=== PATIENT | male | born 1940 | race Caucasian/White ===

== ENCOUNTER 2016-06-11 18:05 | Inpatient (IN) | payer MEDICARE, BC ==
[~2016-06-11] VITALS: Ht 177.8 cm; Wt 96.2 kg
[~2016-06-11 18:05] MED LIST: AMARYL 2MG T2 MG/TAB PO; AMOXICILLIN/CLA1 TA1 PO; ANTIVERT 12.512.5 MG PO; ASPIRIN 32325 MG/TAB PO; ASPIRIN 81M81 MG/TA2 PO; ASPIRIN E.C. 8181 MG PO; BIOTIN5 MG PO; CALCIUM 600600 MG; CALCIUM600 M1 PO; CARDIZEM CD 18180 MG PO; CARDIZEM CD180 MG PO; CENTRUM SILVER1 TA2 PO; CLARITIN 1010 MG/TAB PO; COLACE 100100 MG/CAP PO; COMPLETE SENIOR1 TA1 PO; DEMADEX 20MG20 M1 PO; DEMADEX 20MG20 MG PO; EFFIENT10 MG PO; ELIQUIS 5MG PO; FERROUS SU325 MG/TAB PO; FLOMAX 0.40.4 MG/CAP PO; FOLIC ACID PO; GAVISCON; LACTAID; LACTAID ULTRA9000 U PO; LORATADINE10 MG PO; MACRODANTIN100; MAGNESIUM OXID500 MG PO; MAGNESIUM OXIDE PO; MASON NATURAL1200 MG PO; MERIBIN5 MG; MEVACOR10 MG PO; MONODOX100 PO; NEXIUM 40MG40 MG PO; NEXIUM40 MG PO; NITROSTAT0.4 MG/TAB SL; NORCO 325 MG-51 TAB PO; OMEGA-3 FISH1200 MG PO; PERCOCET 325 MG1 TA2 PO; PHOS LO PO; PRINIVIL10 MG PO; PROSCAR 5MG5 MG PO; PROSCAR PO; TAMBOCOR150 MG PO; TIAZAC180 MG PO; TOPROL XL 25MG25 MG PO; TYLENOL 500MG500 MG PO; VITAMIN C250250 MG PO; VITAMIN D1000 IU PO; VITAMINC1000TA; ZINC SO4 PO
[2016-06-11] MEDS ORDERED: TRIMPEX100 MG PO (18:17)
[2016-06-11] MEDS ORDERED: ZANTAC 7575 MG PO (18:18)
[2016-06-11 19:19] LABS: BASO # 0.1 (0.0-0.2); BASO % 1.2 % (0.0-2.0); EOS # 0.2 (0.0-0.7); EOS % 3.1 % (0-4.0); GRAN # 5.5 (1.4-6.5); HEMATOCRIT 43.6 % (42.0-52.0); HEMOGLOBIN 14.5 g/dl (13.5-18.0); LYMPH # 0.9 (1.2-3.4); LYMPH % 12.6 % (20.0-51.0); MEAN CELL VOLUME 88 fl (80.0-100.0); MEAN CORPUSCULAR HEMOGLOBIN 29 pg (27.0-31.0); MEAN CORPUSCULAR HGB CONC 33 g/dl (33.0-37.0); MEAN PLATELET VOLUME 12.2 fl (7.4-10.4); MONO # 0.6 (0.1-0.6); MONO % 7.8 % (1.7-9.3); PLATELET COUNT 165 K/mm3 (130-400); RED BLOOD COUNT 4.96 M/mm3 (4.20-5.60); REDCELL DISTRIBUTION WIDTH-CV 13.5 % (11.5-14.5); WHITE BLOOD COUNT 7.3 K/mm3 (4.8-10.8)
[2016-06-11 19:28] LABS: PH 6 (5-8); SQUAMOUS EPITHELIAL 0-2 /hpf; URINE APPEARANCE Clear; URINE BACTERIA Rare /hpf; URINE BILIRUBIN Negative (NEGATIVE); URINE BLOOD Negative (NEGATIVE); URINE COLOR Yellow; URINE GLUCOSE Negative (NEGATIVE); URINE KETONE Negative (NEGATIVE); URINE RBC 0-2 /hpf; URINE UROBILINOGEN Negative (NEGATIVE)
[2016-06-11 19:36] LABS: ADJUSTED CALCIUM 8.8 mg/dL (8.4-10.2); ALBUMIN 4.2 gm/dL (3.5-5.0); BILIRUBIN,TOTAL 0.7 mg/dL (0.0-1.0); CREATININE, serum 1.1 mg/dL (0.66-1.25); POTASSIUM 4.7 mmol/L (3.4-5.0); TOTAL PROTEIN 7.8 gm/dL (6.4-8.2)
[2016-06-11 19:36] LABS: INFLUENZA B NEGATIVE
[2016-06-11 20:58] VITALS: BP 154/67; PULSE 69; TEMP 99.1
[2016-06-12] VITALS (7 sets, daily range): BP systolic 117–143; BP diastolic 49–94; PULSE 61–91; TEMP 97.8–101.3
[2016-06-13] VITALS (7 sets, daily range): BP systolic 123–153; BP diastolic 57–68; PULSE 69–91; TEMP 98.2–101.8
[2016-06-13 11:10] LABS: BASO % 0.9 % (0.0-2.0); EOS # 0.2 (0.0-0.7); EOS % 3.6 % (0-4.0); GRAN # 3.1 (1.4-6.5); GRAN % 65.7 % (42.2-75.2); HEMATOCRIT 38.4 % (42.0-52.0); HEMOGLOBIN 12.8 g/dl (13.5-18.0); LYMPH # 0.9 (1.2-3.4); MEAN CELL VOLUME 88 fl (80.0-100.0); MEAN CORPUSCULAR HEMOGLOBIN 29 pg (27.0-31.0); MEAN CORPUSCULAR HGB CONC 33 g/dl (33.0-37.0); MEAN PLATELET VOLUME 11.7 fl (7.4-10.4); MONO # 0.5 (0.1-0.6); MONO % 9.6 % (1.7-9.3); PLATELET COUNT 145 K/mm3 (130-400); RED BLOOD COUNT 4.37 M/mm3 (4.20-5.60); REDCELL DISTRIBUTION WIDTH-CV 13.5 % (11.5-14.5); WHITE BLOOD COUNT 4.7 K/mm3 (4.8-10.8)
[2016-06-14] VITALS (7 sets, daily range): BP systolic 99–133; BP diastolic 49–63; PULSE 62–80; TEMP 97.6–99.8
[2016-06-14 11:25] LABS: HEMATOCRIT 38.8 % (42.0-52.0); HEMOGLOBIN 12.8 g/dl (13.5-18.0); MEAN CELL VOLUME 89 fl (80.0-100.0); MEAN CORPUSCULAR HEMOGLOBIN 30 pg (27.0-31.0); MEAN CORPUSCULAR HGB CONC 33 g/dl (33.0-37.0); MEAN PLATELET VOLUME 11.6 fl (7.4-10.4); PLATELET COUNT 137 K/mm3 (130-400); RED BLOOD COUNT 4.34 M/mm3 (4.20-5.60); REDCELL DISTRIBUTION WIDTH-CV 13.5 % (11.5-14.5); WHITE BLOOD COUNT 4.7 K/mm3 (4.8-10.8)
[2016-06-14 11:29] LABS: ADJUSTED CALCIUM 9.1 mg/dL (8.4-10.2); ALBUMIN 3.4 gm/dL (3.5-5.0); BILIRUBIN,TOTAL 0.5 mg/dL (0.0-1.0); CALCIUM 8.6 mg/dL (8.4-10.2); CREATININE, serum 0.97 mg/dL (0.66-1.25); POTASSIUM 3.9 mmol/L (3.4-5.0); TOTAL PROTEIN 6.2 gm/dL (6.4-8.2)
[2016-06-14 11:36] LABS: ADD PATHOLOGY DIFF REVIEW NO
[2016-06-14 11:46] LABS: BAND 11 % (0-10); EOSINOPHIL 6 % (0-4); NEUTROPHILS 63 % (42.0-75.2); PLATELET ESTIMATE NORMAL (NORMAL); TOTAL CELLS COUNTED 100
[2016-06-15 03:52] VITALS: BP 111/63; PULSE 65; TEMP 98.3
[2016-06-15 08:01] VITALS: BP 118/81; PULSE 72; TEMP 98.1
[2016-06-15 11:32] VITALS: BP 128/64; PULSE 67; TEMP 98.1
[2016-06-15 15:47] VITALS: BP 128/72; PULSE 71; TEMP 97.8
[2016-06-15 20:27] VITALS: BP 130/65; PULSE 65; TEMP 98.4
[2016-06-16 00:26] VITALS: BP 105/53; PULSE 73; TEMP 98.5
[2016-06-16 05:17] VITALS: BP 114/59; PULSE 77; TEMP 98.6
[2016-06-16 08:02] VITALS: BP 119/60; PULSE 72; TEMP 98.1
[2016-06-16 11:30] VITALS: BP 131/84; PULSE 64; TEMP 98.1
[2016-06-16 14:10] VITALS: BP 148/80; PULSE 66
[2016-06-16] MEDS ORDERED: CEFTIN500 MG PO (14:45)
== END 2016-06-16 16:44 | disposition home or self-care (01) | DRG 699 ==
LOC: COL.ER 18:05 → MEDICAL 19:58
PROVIDERS: Emergency Medicine; Nurse Practitioner Family
DX: T83.511A Infection and inflammatory reaction due to indwelling urethral catheter, initial encounter (principal); N13.8 Other obstructive and reflux uropathy; N39.0 Urinary tract infection, site not specified; I25.10 Atherosclerotic heart disease of native coronary artery without angina pectoris; Z95.5 Presence of coronary angioplasty implant and graft; I10 Essential (primary) hypertension; L27.0 Generalized skin eruption due to drugs and medicaments taken internally; T50.8X5A Adverse effect of diagnostic agents, initial encounter; N40.1 Benign prostatic hyperplasia with lower urinary tract symptoms; E11.9 Type 2 diabetes mellitus without complications; I48.91 Unspecified atrial fibrillation; Z87.891 Personal history of nicotine dependence
CPT/HCPCS: 99222-AI; 99232-AI; 99239; G9654; J0696; J1200; J1815; J2060; J2405; J2704; J7030; Q9967

== ENCOUNTER 2016-07-18 08:17 | Inpatient (IN) | payer MEDICARE, BC ==
[~2016-07-18] VITALS: Ht 177.8 cm; Wt 96.1 kg
[~2016-07-18 08:17] MED LIST changes: +CEFTIN500 MG PO; +TRIMPEX100 MG PO; +ZANTAC 7575 MG PO
[2016-07-18 09:30] VITALS: BP 126/75; PULSE 76; TEMP 98.3
[2016-07-18] MEDS ORDERED: TRIMPEX100 MG PO (10:16)
[2016-07-18 10:20] LABS: HEMATOCRIT 43.5 % (42.0-52.0); HEMOGLOBIN 14.4 g/dl (13.5-18.0); MEAN CELL VOLUME 88 fl (80.0-100.0); MEAN CORPUSCULAR HEMOGLOBIN 29 pg (27.0-31.0); MEAN CORPUSCULAR HGB CONC 33 g/dl (33.0-37.0); MEAN PLATELET VOLUME 11.8 fl (7.4-10.4); PLATELET COUNT 187 K/mm3 (130-400); RED BLOOD COUNT 4.94 M/mm3 (4.20-5.60); REDCELL DISTRIBUTION WIDTH-CV 13.7 % (11.5-14.5); WHITE BLOOD COUNT 6.8 K/mm3 (4.8-10.8)
[2016-07-18] MEDS ORDERED: COLACE 100100 MG/CAP PO (10:21)
[2016-07-18 10:24] LABS: INR 1.3 (0.8-3.0); PROTHROMBIN TIME 14.9 SECONDS (9.7-12.8)
[2016-07-18] MEDS ORDERED: CALCIUM 600/VIT1 CAP PO (10:26)
[2016-07-18 10:39] LABS: ADJUSTED CALCIUM 9.7 mg/dL (8.4-10.2); BILIRUBIN,TOTAL 0.6 mg/dL (0.0-1.0); CALCIUM 9.7 mg/dL (8.4-10.2); CREATININE, serum 1.07 mg/dL (0.66-1.25); MAGNESIUM 2.1 mg/dL (1.6-2.3); TOTAL PROTEIN 7.4 gm/dL (6.4-8.2)
[2016-07-18] MEDS ORDERED: EX-LAX25 MG PO (10:45)
[2016-07-18 11:51] VITALS: BP 115/66; PULSE 74; TEMP 98.2
[2016-07-18 16:22] VITALS: BP 123/59; PULSE 63; TEMP 97.8
[2016-07-18 20:37] VITALS: BP 123/65; PULSE 61; TEMP 98.4
[2016-07-18 23:43] VITALS: BP 109/63; PULSE 60; TEMP 98.8
[2016-07-19 03:14] VITALS: BP 95/58; PULSE 66; TEMP 98.4
[2016-07-19 07:25] LABS: HEMATOCRIT 43.1 % (42.0-52.0); HEMOGLOBIN 14.2 g/dl (13.5-18.0); MEAN CELL VOLUME 89 fl (80.0-100.0); MEAN CORPUSCULAR HEMOGLOBIN 29 pg (27.0-31.0); MEAN CORPUSCULAR HGB CONC 33 g/dl (33.0-37.0); PLATELET COUNT 186 K/mm3 (130-400); RED BLOOD COUNT 4.86 M/mm3 (4.20-5.60); REDCELL DISTRIBUTION WIDTH-CV 13.7 % (11.5-14.5); WHITE BLOOD COUNT 5.9 K/mm3 (4.8-10.8)
[2016-07-19 07:43] LABS: CALCIUM 9.2 mg/dL (8.4-10.2); POTASSIUM 3.9 mmol/L (3.4-5.0)
[2016-07-19 07:54] VITALS: BP 127/62; PULSE 60; TEMP 98.2
[2016-07-19 11:38] VITALS: BP 146/73; PULSE 57; TEMP 97.9
[2016-07-19 16:40] VITALS: BP 135/71; PULSE 55; TEMP 98.6
[2016-07-19 19:27] VITALS: BP 131/67; PULSE 63; TEMP 98
[2016-07-19 23:32] VITALS: BP 111/57; PULSE 57; TEMP 97.7
[2016-07-20 03:35] VITALS: BP 92/70; PULSE 62; TEMP 97.8
[2016-07-20 07:20] LABS: HEMATOCRIT 39.2 % (42.0-52.0); HEMOGLOBIN 13.2 g/dl (13.5-18.0); MEAN CELL VOLUME 88 fl (80.0-100.0); MEAN CORPUSCULAR HEMOGLOBIN 30 pg (27.0-31.0); MEAN CORPUSCULAR HGB CONC 34 g/dl (33.0-37.0); MEAN PLATELET VOLUME 12.1 fl (7.4-10.4); PLATELET COUNT 168 K/mm3 (130-400); RED BLOOD COUNT 4.46 M/mm3 (4.20-5.60); REDCELL DISTRIBUTION WIDTH-CV 13.3 % (11.5-14.5); WHITE BLOOD COUNT 5.6 K/mm3 (4.8-10.8)
[2016-07-20 07:34] VITALS: BP 121/72; PULSE 59; TEMP 98.2
[2016-07-20 07:36] LABS: CALCIUM 8.9 mg/dL (8.4-10.2); CREATININE, serum 1.02 mg/dL (0.66-1.25); POTASSIUM 3.9 mmol/L (3.4-5.0)
[2016-07-20] MEDS ORDERED: BETAPACE 120MG120 MG PO (10:52)
== END 2016-07-20 11:40 | disposition home or self-care (01) | DRG 310 ==
LOC: MEDICAL 08:17
PROVIDERS: Internal Medicine Cardiovascular Disease
DX: I48.0 Paroxysmal atrial fibrillation (principal); E11.9 Type 2 diabetes mellitus without complications; I10 Essential (primary) hypertension; Z87.891 Personal history of nicotine dependence

== ENCOUNTER → 2016-12-12 | Outpatient (CLI) | payer MEDICARE, BC ==
[~2016-12-12] MED LIST changes: +BETAPACE 120MG120 MG PO; +CALCIUM 600/VIT1 CAP PO; +EX-LAX25 MG PO
== END ==
LOC: COL.RAD 09:33
DX: N31.2 Flaccid neuropathic bladder, not elsewhere classified (principal)

== ENCOUNTER 2017-06-29 16:49 | Observation (INO) | payer MEDICARE, BC ==
[2017-06-29] VITALS (109 sets, daily range): BP systolic 138; BP diastolic 66–99; PULSE 62–69; TEMP 97.2; O2SAT 94–97
[~2017-06-29] VITALS: Ht 177.8 cm; Wt 90.0 kg
[2017-06-29] MEDS ORDERED: PROTONIX 40MG T40 MG PO (17:09)
[2017-06-29] MEDS ORDERED: DOXYCYCLINE 50M50 MG PO (17:10)
[2017-06-29] MEDS ORDERED: BETAPACE 120MG120 MG PO (17:11)
[2017-06-29 17:16] LABS: BASO # 0.1 (0.0-0.2); BASO % 1.5 % (0.0-2.0); EOS # 0.4 (0.0-0.7); EOS % 6.3 % (0-4.0); GRAN # 2.7 (1.4-6.5); GRAN % 46.3 % (42.2-75.2); HEMATOCRIT 42.1 % (42.0-52.0); HEMOGLOBIN 13.8 g/dl (13.5-18.0); LYMPH # 1.9 (1.2-3.4); LYMPH % 32.4 % (20.0-51.0); MEAN CELL VOLUME 89 fl (80.0-100.0); MEAN CORPUSCULAR HEMOGLOBIN 29 pg (27.0-31.0); MEAN CORPUSCULAR HGB CONC 33 g/dl (33.0-37.0); MEAN PLATELET VOLUME 11.9 fl (7.4-10.4); MONO # 0.8 (0.1-0.6); MONO % 13.2 % (1.7-9.3); PLATELET COUNT 193 K/mm3 (130-400); RED BLOOD COUNT 4.74 M/mm3 (4.20-5.60); REDCELL DISTRIBUTION WIDTH-CV 13.2 % (11.5-14.5)
[2017-06-29 17:18] LABS: INR 1.2 (0.8-3.0); PROTHROMBIN TIME 14.1 SECONDS (9.7-12.8)
[2017-06-29 17:20] LABS: PARTIAL THROMBOPLASTIN TIME 34.8 SECONDS (26.0-37.0)
[2017-06-29 17:21] LABS: ALANINE AMINOTRANSFERASE 54 U/L (21-72); ALBUMIN 4.2 gm/dL (3.5-5.0); ALKALINE PHOSPHATASE 61 U/L (50-136); ANION GAP 11 mmol/L (7-16); AST,SGOT 43 U/L (15-37); BILIRUBIN,TOTAL 0.4 mg/dL (0.0-1.0); BLOOD UREA NITROGEN 14 mg/dL (9-20); CALCIUM 9.2 mg/dL (8.4-10.2); CARBON DIOXIDE 25 mmol/L (22-30); CHLORIDE 101 mmol/L (98-107); CREATININE, serum 0.84 mg/dL (0.66-1.25); GLUCOSE 204 mg/dL (74-106); MAGNESIUM 1.9 mg/dL (1.6-2.3); POTASSIUM 4.1 mmol/L (3.4-5.0); SODIUM 137 mmol/L (137-145); TOTAL PROTEIN 7.5 gm/dL (6.4-8.2)
[2017-06-29 17:36] LABS: TROPONIN-I < 0.012 ng/mL (0.000-0.034)
[2017-06-29 19:49] LABS: MAGNESIUM 1.9 mg/dL (1.6-2.3)
[2017-06-29 20:02] LABS: TROPONIN-I 3 HR POST INITIAL < 0.012 ng/mL (0.000-0.034)
[2017-06-29] MEDS ORDERED: MAG-OX 400400 MG/TAB PO (21:13)
[2017-06-29 21:27] LABS: COLLECTION METHOD CATHETER
[2017-06-29 21:39] LABS: PH 6 (5-8); SQUAMOUS EPITHELIAL 0-2 /hpf; URINE APPEARANCE Clear; URINE BACTERIA None Seen /hpf; URINE BILIRUBIN Negative (NEGATIVE); URINE BLOOD Negative (NEGATIVE); URINE COLOR Straw; URINE GLUCOSE Negative (NEGATIVE); URINE KETONE Negative (NEGATIVE); URINE LEUKOCYTE ESTERASE 1+ (NEGATIVE); URINE NITRATE Negative (NEGATIVE); URINE PROTEIN(semi-quant) Negative (NEGATIVE); URINE RBC 0-2 /hpf; URINE UROBILINOGEN Negative (NEGATIVE)
[2017-06-30] VITALS (268 sets, daily range): BP systolic 118–141; BP diastolic 48–75; PULSE 50–62; TEMP 97.2–98.6; O2SAT 88–98
[2017-06-30 05:41] LABS: BASO # 0.1 (0.0-0.2); BASO % 1.4 % (0.0-2.0); EOS # 0.4 (0.0-0.7); EOS % 6.6 % (0-4.0); GRAN # 3.1 (1.4-6.5); GRAN % 52.8 % (42.2-75.2); LYMPH # 1.7 (1.2-3.4); LYMPH % 28.6 % (20.0-51.0); MEAN CELL VOLUME 89 fl (80.0-100.0); MEAN CORPUSCULAR HGB CONC 33 g/dl (33.0-37.0); MEAN PLATELET VOLUME 11.6 fl (7.4-10.4); MONO # 0.6 (0.1-0.6); MONO % 10.3 % (1.7-9.3); PLATELET COUNT 169 K/mm3 (130-400); RED BLOOD COUNT 4.05 M/mm3 (4.20-5.60); REDCELL DISTRIBUTION WIDTH-CV 13.1 % (11.5-14.5)
[2017-06-30 05:51] LABS: HEMATOCRIT 36.1 % (42.0-52.0); HEMOGLOBIN 11.8 g/dl (13.5-18.0); MEAN CORPUSCULAR HEMOGLOBIN 29 pg (27.0-31.0)
[2017-06-30 05:55] LABS: ALANINE AMINOTRANSFERASE 42 U/L (21-72); ALBUMIN 3.2 gm/dL (3.5-5.0); ALKALINE PHOSPHATASE 49 U/L (50-136); ANION GAP 6 mmol/L (7-16); AST,SGOT 27 U/L (15-37); BILIRUBIN,TOTAL 0.3 mg/dL (0.0-1.0); BLOOD UREA NITROGEN 12 mg/dL (9-20); CALCIUM 8.3 mg/dL (8.4-10.2); CARBON DIOXIDE 28 mmol/L (22-30); CHLORIDE 106 mmol/L (98-107); CHOLESTEROL 142 mg/dL (120-200); CHOLESTEROL RISK RATIO 6.1; CREATININE, serum 0.75 mg/dL (0.66-1.25); GLUCOSE 119 mg/dL (74-106); HDL CHOLESTEROL 23 mg/dL; LDL CHOLESTEROL 71 mg/dL; POTASSIUM 3.6 mmol/L (3.4-5.0); SODIUM 140 mmol/L (137-145); TOTAL PROTEIN 6.1 gm/dL (6.4-8.2); TRIGLYCERIDE 240 mg/dL
[2017-06-30 06:10] LABS: TROPONIN-I < 0.012 ng/mL (0.000-0.034)
== END 2017-06-30 13:15 | disposition home or self-care (01) ==
LOC: COL.ER 16:49 → ICU 18:15
PROVIDERS: Emergency Medicine; Nurse Practitioner Family
DX: R07.9 Chest pain, unspecified (principal); I48.0 Paroxysmal atrial fibrillation; E11.9 Type 2 diabetes mellitus without complications; I25.10 Atherosclerotic heart disease of native coronary artery without angina pectoris; I10 Essential (primary) hypertension; E78.5 Hyperlipidemia, unspecified; N41.9 Inflammatory disease of prostate, unspecified; K21.9 Gastro-esophageal reflux disease without esophagitis; I08.1 Rheumatic disorders of both mitral and tricuspid valves; Z88.1 Allergy status to other antibiotic agents; Z88.5 Allergy status to narcotic agent; Z90.49 Acquired absence of other specified parts of digestive tract; Z79.82 Long term (current) use of aspirin; Z79.01 Long term (current) use of anticoagulants; Z79.84 Long term (current) use of oral hypoglycemic drugs; Z87.891 Personal history of nicotine dependence; Z83.3 Family history of diabetes mellitus; Z82.3 Family history of stroke; Z82.5 Family history of asthma and other chronic lower respiratory diseases
CPT/HCPCS: G0378; J1815; J7030

== ENCOUNTER 2017-10-31 00:54 | Emergency (ER) | payer MEDICARE, BC ==
[~2017-10-31] VITALS: Ht 177.8 cm; Wt 90.9 kg
[~2017-10-31 00:54] MED LIST changes: +DOXYCYCLINE 50M50 MG PO; +MAG-OX 400400 MG/TAB PO; +PROTONIX 40MG T40 MG PO
[2017-10-31 01:02] VITALS: TEMP 97.8
[2017-10-31 01:12] LABS: BASO # 0.1 (0.0-0.2); BASO % 1.7 % (0.0-2.0); EOS # 0.5 (0.0-0.7); EOS % 6.4 % (0-4.0); GRAN # 4.1 (1.4-6.5); GRAN % 54.2 % (42.2-75.2); HEMATOCRIT 38.3 % (42.0-52.0); HEMOGLOBIN 13.1 g/dl (13.5-18.0); LYMPH # 2.1 (1.2-3.4); LYMPH % 27.9 % (20.0-51.0); MEAN CELL VOLUME 87 fl (80.0-100.0); MEAN CORPUSCULAR HEMOGLOBIN 30 pg (27.0-31.0); MEAN CORPUSCULAR HGB CONC 34 g/dl (33.0-37.0); MEAN PLATELET VOLUME 11.7 fl (7.4-10.4); MONO # 0.7 (0.1-0.6); MONO % 9.5 % (1.7-9.3); PLATELET COUNT 197 K/mm3 (130-400); RED BLOOD COUNT 4.43 M/mm3 (4.20-5.60); REDCELL DISTRIBUTION WIDTH-CV 13.6 % (11.5-14.5)
[2017-10-31 01:22] LABS: INR 1.1 (0.8-3.0)
[2017-10-31 01:24] LABS: ALANINE AMINOTRANSFERASE 34 U/L (21-72); ALBUMIN 3.6 gm/dL (3.5-5.0); ALKALINE PHOSPHATASE 52 U/L (50-136); ANION GAP 11 mmol/L (7-16); AST,SGOT 26 U/L (15-37); BILIRUBIN,TOTAL 0.3 mg/dL (0.0-1.0); BLOOD UREA NITROGEN 19 mg/dL (9-20); CALCIUM 8.9 mg/dL (8.4-10.2); CARBON DIOXIDE 24 mmol/L (22-30); CHLORIDE 103 mmol/L (98-107); CREATININE, serum 0.96 mg/dL (0.66-1.25); GLUCOSE 154 mg/dL (74-106); POTASSIUM 4.2 mmol/L (3.4-5.0); SODIUM 138 mmol/L (137-145); TOTAL PROTEIN 6.8 gm/dL (6.4-8.2)
[2017-10-31 01:35] LABS: TROPONIN-I < 0.012 ng/mL (0.000-0.034)
[2017-10-31] MEDS ORDERED: NITROSTAT0.4 MG/TAB SL (03:58)
[2017-10-31 04:12] VITALS: BP 115/62; PULSE 57
== END 2017-10-31 04:24 | disposition home or self-care (01) ==
LOC: COL.ER 00:54
PROVIDERS: Emergency Medicine
DX: R07.89 Other chest pain (principal); I25.119 Atherosclerotic heart disease of native coronary artery with unspecified angina pectoris; I10 Essential (primary) hypertension; E11.9 Type 2 diabetes mellitus without complications; E78.5 Hyperlipidemia, unspecified; K21.9 Gastro-esophageal reflux disease without esophagitis; I48.91 Unspecified atrial fibrillation; Z95.5 Presence of coronary angioplasty implant and graft; Z90.49 Acquired absence of other specified parts of digestive tract; Z79.82 Long term (current) use of aspirin

== ENCOUNTER 2018-04-24 18:01 | Inpatient (IN) | payer MEDICARE, BC ==
[~2018-04-24] VITALS: Ht 177.8 cm; Wt 86.1 kg
[2018-04-24 18:23] LABS: BASO # 0.2 (0.0-0.2); BASO % 1.6 % (0.0-2.0); EOS # 0.3 (0.0-0.7); EOS % 3.3 % (0-4.0); GRAN # 5.6 (1.4-6.5); GRAN % 61.2 % (42.2-75.2); HEMATOCRIT 39.7 % (42.0-52.0); HEMOGLOBIN 13.3 g/dl (13.5-18.0); LYMPH # 2.3 (1.2-3.4); LYMPH % 24.7 % (20.0-51.0); MEAN CELL VOLUME 89 fl (80.0-100.0); MEAN CORPUSCULAR HEMOGLOBIN 30 pg (27.0-31.0); MEAN CORPUSCULAR HGB CONC 34 g/dl (33.0-37.0); MEAN PLATELET VOLUME 12.1 fl (7.4-10.4); MONO # 0.8 (0.1-0.6); MONO % 8.9 % (1.7-9.3); PLATELET COUNT 230 K/mm3 (130-400); RED BLOOD COUNT 4.46 M/mm3 (4.20-5.60); REDCELL DISTRIBUTION WIDTH-CV 13.1 % (11.5-14.5)
[2018-04-24] MEDS ORDERED: GLUCOPHAGE XR500 M1 PO (18:40)
[2018-04-24] MEDS ORDERED: MEVACOR 20M20 MG/TAB PO (18:44)
[2018-04-24 18:45] LABS: ALANINE AMINOTRANSFERASE 39 U/L (21-72); ALKALINE PHOSPHATASE 57 U/L (50-136); ANION GAP 6 mmol/L (7-16); AST,SGOT 38 U/L (15-37); BILIRUBIN,TOTAL 0.1 mg/dL (0.0-1.0); BLOOD UREA NITROGEN 24 mg/dL (9-20); CALCIUM 9.1 mg/dL (8.4-10.2); CARBON DIOXIDE 26 mmol/L (22-30); CHLORIDE 108 mmol/L (98-107); GLUCOSE 139 mg/dL (74-106); LIPASE 95 U/L (23-300); POTASSIUM 4.5 mmol/L (3.4-5.0); SODIUM 141 mmol/L (137-145)
[2018-04-24 19:07] LABS: TROPONIN-I < 0.012 ng/mL (0.000-0.034)
[2018-04-24] MEDS ORDERED: TYLENOL 325MG325 MG PO (19:38)
[2018-04-24] MEDS ORDERED: BIOTIN2500 MCG PO (19:44)
[2018-04-24 21:25] VITALS: BP 110/63; PULSE 66; TEMP 98.1
[2018-04-24 22:30] VITALS: BP 124/65; PULSE 122
[2018-04-24 23:00] VITALS: BP 129/60; PULSE 66
[2018-04-24 23:54] VITALS: BP 101/64; PULSE 67; TEMP 97.9
[2018-04-25] VITALS (12 sets, daily range): BP systolic 114–136; BP diastolic 45–70; PULSE 57–79; TEMP 78.2–98.2
[2018-04-25 02:17] LABS: INR 1.4 (0.8-3.0); PROTHROMBIN TIME 15.5 SECONDS (9.7-12.8)
[2018-04-25 02:19] LABS: MAGNESIUM 2.1 mg/dL (1.6-2.3)
[2018-04-25 02:19] LABS: PARTIAL THROMBOPLASTIN TIME 37.6 SECONDS (26.0-37.0)
[2018-04-25 02:33] LABS: TROPONIN-I 6 HR POST INITIAL < 0.012 ng/mL (0.000-0.034)
[2018-04-25 07:44] LABS: CHOLESTEROL 138 mg/dL (120-200); CHOLESTEROL RISK RATIO 6.2; HDL CHOLESTEROL 22 mg/dL; LDL CHOLESTEROL 76 mg/dL; TRIGLYCERIDE 202 mg/dL
[2018-04-25 07:57] LABS: TROPONIN-I < 0.012 ng/mL (0.000-0.034)
[2018-04-25 14:24] LABS: COLLECTION METHOD CATHETER
[2018-04-25 14:31] LABS: PH 6 (5-8); SQUAMOUS EPITHELIAL None Seen /hpf; URINE APPEARANCE Clear; URINE BACTERIA None Seen /hpf; URINE BILIRUBIN Negative (NEGATIVE); URINE BLOOD Negative (NEGATIVE); URINE COLOR Yellow; URINE GLUCOSE Negative (NEGATIVE); URINE KETONE Negative (NEGATIVE); URINE LEUKOCYTE ESTERASE Negative (NEGATIVE); URINE NITRATE Negative (NEGATIVE); URINE PROTEIN(semi-quant) Negative (NEGATIVE); URINE RBC 0-2 /hpf; URINE UROBILINOGEN Negative (NEGATIVE)
[2018-04-26] VITALS (7 sets, daily range): BP systolic 107–143; BP diastolic 52–70; PULSE 57–98; TEMP 97.5–98.1
[2018-04-26 08:19] LABS: BASO # 0.1 (0.0-0.2); BASO % 1.2 % (0.0-2.0); EOS # 0.3 (0.0-0.7); GRAN # 5.1 (1.4-6.5); GRAN % 66.2 % (42.2-75.2); HEMATOCRIT 39.7 % (42.0-52.0); HEMOGLOBIN 13.2 g/dl (13.5-18.0); LYMPH # 1.5 (1.2-3.4); LYMPH % 19.7 % (20.0-51.0); MEAN CELL VOLUME 90 fl (80.0-100.0); MEAN CORPUSCULAR HEMOGLOBIN 30 pg (27.0-31.0); MEAN CORPUSCULAR HGB CONC 33 g/dl (33.0-37.0); MEAN PLATELET VOLUME 12.5 fl (7.4-10.4); MONO # 0.7 (0.1-0.6); MONO % 8.6 % (1.7-9.3); PLATELET COUNT 211 K/mm3 (130-400); RED BLOOD COUNT 4.43 M/mm3 (4.20-5.60); REDCELL DISTRIBUTION WIDTH-CV 13.1 % (11.5-14.5)
[2018-04-26 08:30] LABS: ALANINE AMINOTRANSFERASE 33 U/L (21-72); ALBUMIN 3.9 gm/dL (3.5-5.0); ALKALINE PHOSPHATASE 52 U/L (50-136); ANION GAP 7 mmol/L (7-16); AST,SGOT 35 U/L (15-37); BILIRUBIN,TOTAL 0.4 mg/dL (0.0-1.0); BLOOD UREA NITROGEN 19 mg/dL (9-20); CALCIUM 9.1 mg/dL (8.4-10.2); CARBON DIOXIDE 27 mmol/L (22-30); CHLORIDE 108 mmol/L (98-107); CREATININE, serum 0.78 mg/dL (0.66-1.25); GLUCOSE 159 mg/dL (74-106); SODIUM 142 mmol/L (137-145); TOTAL PROTEIN 6.9 gm/dL (6.4-8.2)
[2018-04-26 08:56] LABS: TROPONIN-I < 0.012 ng/mL (0.000-0.034)
[2018-04-27] VITALS (20 sets, daily range): BP systolic 96–144; BP diastolic 53–97; PULSE 52–69; TEMP 97.4–98
[2018-04-27 07:54] LABS: BASO # 0.1 (0.0-0.2); BASO % 1.6 % (0.0-2.0); EOS # 0.4 (0.0-0.7); GRAN # 4.2 (1.4-6.5); GRAN % 60.3 % (42.2-75.2); HEMATOCRIT 37.5 % (42.0-52.0); HEMOGLOBIN 12.5 g/dl (13.5-18.0); LYMPH # 1.6 (1.2-3.4); LYMPH % 22.5 % (20.0-51.0); MEAN CELL VOLUME 88 fl (80.0-100.0); MEAN CORPUSCULAR HEMOGLOBIN 29 pg (27.0-31.0); MEAN CORPUSCULAR HGB CONC 33 g/dl (33.0-37.0); MONO # 0.7 (0.1-0.6); MONO % 10.2 % (1.7-9.3); PLATELET COUNT 186 K/mm3 (130-400); RED BLOOD COUNT 4.25 M/mm3 (4.20-5.60)
[2018-04-27 08:00] LABS: INR 1.2 (0.8-3.0); PROTHROMBIN TIME 13.1 SECONDS (9.7-12.8)
[2018-04-27 08:02] LABS: PARTIAL THROMBOPLASTIN TIME 35.1 SECONDS (26.0-37.0)
[2018-04-27 08:09] LABS: CALCIUM 8.8 mg/dL (8.4-10.2); CREATININE, serum 0.75 mg/dL (0.66-1.25); POTASSIUM 3.9 mmol/L (3.4-5.0)
[2018-04-28 04:15] VITALS: BP 119/58; PULSE 62
[2018-04-28 08:13] VITALS: BP 118/63; PULSE 61; TEMP 97.9
[2018-04-28 12:08] VITALS: BP 118/63; PULSE 56; TEMP 97.4
[2018-04-28] MEDS ORDERED: BETAPACE 120MG120 MG PO (12:58)
== END 2018-04-28 14:10 | disposition home or self-care (01) | DRG 287 ==
LOC: COL.ER 18:01 → MEDICAL 20:25
PROVIDERS: Emergency Medicine; Internal Medicine; Nurse Practitioner Family; Physician Assistant
PROC: B2111ZZ Fluoroscopy of Multiple Coronary Arteries using Low Osmolar Contrast (ICD-10-PCS; principal; 2018-04-27)
DX: I25.10 Atherosclerotic heart disease of native coronary artery without angina pectoris (principal); N13.8 Other obstructive and reflux uropathy; I48.0 Paroxysmal atrial fibrillation; Z95.5 Presence of coronary angioplasty implant and graft; I10 Essential (primary) hypertension; E11.9 Type 2 diabetes mellitus without complications; N40.1 Benign prostatic hyperplasia with lower urinary tract symptoms; K22.2 Esophageal obstruction; Z79.01 Long term (current) use of anticoagulants; E78.5 Hyperlipidemia, unspecified; I08.1 Rheumatic disorders of both mitral and tricuspid valves; Z87.891 Personal history of nicotine dependence; I27.20 Pulmonary hypertension, unspecified
CPT/HCPCS: 99232-AI; 99233-AI; 99239; A9502; C1760; C1894; G0378; J1200; J1644; J1815; J2250; J2785; J2930; J3010; J7030; Q9967

== ENCOUNTER → 2018-07-30 | Outpatient (CLI) | payer MEDICARE, BC ==
[~2018-07-30] MED LIST changes: +BIOTIN2500 MCG PO; +GLUCOPHAGE XR500 M1 PO; +MEVACOR 20M20 MG/TAB PO; +TYLENOL 325MG325 MG PO
== END ==
LOC: COL.RAD 12:27
DX: N31.2 Flaccid neuropathic bladder, not elsewhere classified (principal)

== ENCOUNTER 2020-01-03 08:08 | Day surgery (SDC) | payer MEDICARE, BC ==
[~2020-01-03] VITALS: Ht 177.8 cm; Wt 89.7 kg
[~2020-01-03 08:08] MED LIST changes: +CALCIUM CARBON600 M1 PO; +GLUCOPHAGE500 MG/TAB PO; +LIPITOR20 MG PO; +MACROBID 1100 MG/CAP PO; +MASON NATURAL O1 SGL PO; -MASON NATURAL1200 MG PO; +MULTIVITAMIN SEN PO; +OMNICEF 300MG300 MG PO; -VITAMINC1000TA; +VITAMINC1000TA PO
[2020-01-03 08:46] VITALS: BP 143/71; PULSE 63; TEMP 98.6
[2020-01-03] MEDS ORDERED: BETAPACE160 MG PO (08:54)
[2020-01-03] MEDS ORDERED: ELIQUIS 5MG PO (08:55)
[2020-01-03] MEDS ORDERED: BETAPACE 80MG80 MG PO (08:57)
[2020-01-03] MEDS ORDERED: PROSCAR 5MG5 MG PO (08:59)
[2020-01-03] MEDS ORDERED: LIPITOR20 MG PO (09:00)
[2020-01-03] MEDS ORDERED: VITAMIN D31000 I1 PO (09:06)
[2020-01-03] MEDS ORDERED: CEPHALEXIN500 M1 PO (09:07)
[2020-01-03 09:15] VITALS: BP 128/62; PULSE 60; TEMP 97.8
--- NOTE | 2020-01-03 09:15 | NUR ---
Patient brought back to [facility] via cart. Ambulated to chair with one assist. Placed on monitors, vital signs stable. Patient is oriented, denies nausea or pain. Requests diet soda, peanut butter, and crackers. at bedside to drive patient home. Warm blanket provied, call bravo within reach. Will continue to monitor.
[2020-01-03 09:30] VITALS: BP 131/61; PULSE 61
--- NOTE | 2020-01-03 09:30 | NUR ---
Patient tolerating food and drink without difficulty. Denies any trouble swallowing. Will continue to monitor.
[2020-01-03 09:45] VITALS: BP 134/69; PULSE 60
--- NOTE | 2020-01-03 09:45 | NUR ---
Patient states he feels ready to go home at this time. IV removed, intact. Denies pain or nasuea. Patient to get dressed at this time. in room to assist. Will continue to monitor.
--- NOTE | 2020-01-03 09:55 | NUR ---
Discharge instructions reviewed with patient and . Verbalized understanding. Patient brought down to lobby via wheel chair. Helped into vehicle. to drive patient home. All belongings in hand.
== END 2020-01-03 09:55 | disposition home or self-care (01) ==
LOC: SDCO 08:08
DX: K22.2 Esophageal obstruction (principal); K21.9 Gastro-esophageal reflux disease without esophagitis; E11.9 Type 2 diabetes mellitus without complications; I10 Essential (primary) hypertension; E78.00 Pure hypercholesterolemia, unspecified; I25.10 Atherosclerotic heart disease of native coronary artery without angina pectoris; Z95.5 Presence of coronary angioplasty implant and graft; I48.91 Unspecified atrial fibrillation; G89.29 Other chronic pain; Z91.041 Radiographic dye allergy status; Z88.1 Allergy status to other antibiotic agents; Z88.5 Allergy status to narcotic agent; Z88.2 Allergy status to sulfonamides; Z79.01 Long term (current) use of anticoagulants; Z79.82 Long term (current) use of aspirin; Z79.84 Long term (current) use of oral hypoglycemic drugs
CPT/HCPCS: C1726; J2704; J3010; J7030

== ENCOUNTER 2020-02-11 12:16 | Emergency (ER) | payer MEDICARE, BC ==
[~2020-02-11] VITALS: Ht 177.8 cm; Wt 87.3 kg
[~2020-02-11 12:16] MED LIST changes: +BETAPACE 80MG80 MG PO; +BETAPACE160 MG PO; +CEPHALEXIN500 M1 PO; +VITAMIN D31000 I1 PO
[2020-02-11 14:00] LABS: BASO # 0.1 (0.0-0.2); BASO % 0.9 % (0.0-2.0); EOS # 0.3 (0.0-0.7); EOS % 2.8 % (0-4.0); GRAN # 9.1 (1.4-6.5); GRAN % 76.2 % (42.2-75.2); HEMATOCRIT 37.3 % (42.0-52.0); HEMOGLOBIN 12.3 g/dl (13.5-18.0); LYMPH # 1.2 (1.2-3.4); LYMPH % 9.6 % (20.0-51.0); MEAN CELL VOLUME 90 fl (80.0-100.0); MEAN CORPUSCULAR HEMOGLOBIN 30 pg (27.0-31.0); MEAN CORPUSCULAR HGB CONC 33 g/dl (33.0-37.0); MONO # 1.2 (0.1-0.6); MONO % 10.1 % (1.7-9.3); PLATELET COUNT 201 K/mm3 (130-400); RED BLOOD COUNT 4.14 M/mm3 (4.20-5.60); REDCELL DISTRIBUTION WIDTH-CV 13.4 % (11.5-14.5)
[2020-02-11 14:02] LABS: INR 1.3 (0.8-3.0); PROTHROMBIN TIME 15.1 SECONDS (9.7-12.8)
[2020-02-11 14:04] LABS: PARTIAL THROMBOPLASTIN TIME 38.7 SECONDS (26.0-37.0)
[2020-02-11 14:06] LABS: CREATININE, serum 0.92 (0.66-1.25); POTASSIUM 4.6 mmol/L (3.4-5.0)
[2020-02-11 15:02] LABS: C-REACTIVE PROTEIN 1.4 mg/dL (0.0-0.9); URIC ACID 7.4 mg/dL (3.5-8.5)
[2020-02-11] MEDS ORDERED: NORCO 325 MG-51 TAB PO (15:29)
[2020-02-11 15:30] VITALS: BP 167/80; PULSE 67; TEMP 98.1
== END 2020-02-11 15:53 | disposition home or self-care (01) ==
LOC: COL.ER 12:16
PROVIDERS: Emergency Medicine
DX: M25.512 Pain in left shoulder (principal); Z79.01 Long term (current) use of anticoagulants; Z88.2 Allergy status to sulfonamides; Z88.6 Allergy status to analgesic agent; Z79.82 Long term (current) use of aspirin; Z79.84 Long term (current) use of oral hypoglycemic drugs; W01.0XXA Fall on same level from slipping, tripping and stumbling without subsequent striking against object, initial encounter; Y92.009 Unspecified place in unspecified non-institutional (private) residence as the place of occurrence of the external cause
CPT/HCPCS: J3010

== ENCOUNTER 2020-11-15 17:04 | Emergency (ER) | payer MEDICARE, BC ==
[~2020-11-15] VITALS: Ht 177.8 cm; Wt 86.4 kg
[2020-11-15 17:12] VITALS: TEMP 98.2
[2020-11-15 17:34] LABS: BASO # 0.2 (0.0-0.2); EOS # 0.9 (0.0-0.7); EOS % 9.8 % (0-4.0); GRAN % 56.3 % (42.2-75.2); HEMATOCRIT 41.6 % (42.0-52.0); HEMOGLOBIN 13.5 g/dl (13.5-18.0); LYMPH # 2.1 (1.2-3.4); LYMPH % 22.9 % (20.0-51.0); MEAN CELL VOLUME 88 fl (80.0-100.0); MEAN CORPUSCULAR HEMOGLOBIN 29 pg (27.0-31.0); MEAN CORPUSCULAR HGB CONC 33 g/dl (33.0-37.0); MEAN PLATELET VOLUME 12.1 fl (7.4-10.4); MONO # 0.8 (0.1-0.6); MONO % 8.7 % (1.7-9.3); PLATELET COUNT 220 K/mm3 (130-400); RED BLOOD COUNT 4.73 M/mm3 (4.20-5.60); REDCELL DISTRIBUTION WIDTH-CV 13.9 % (11.5-14.5)
[2020-11-15 17:41] LABS: ALANINE AMINOTRANSFERASE 22 U/L (4-49); ALBUMIN 4.1 gm/dL (3.5-5.0); ALKALINE PHOSPHATASE 62 U/L (50-136); ANION GAP 10 mmol/L (7-16); AST,SGOT 30 U/L (15-37); BILIRUBIN,TOTAL 0.2 mg/dL (0.0-1.0); BLOOD UREA NITROGEN 23 mg/dL (9-20); CALCIUM 9.5 mg/dL (8.4-10.2); CARBON DIOXIDE 22 mmol/L (22-30); CHLORIDE 106 mmol/L (98-107); CREATININE, serum 1.14 (0.66-1.25); GLUCOSE 200 mg/dL (74-106); INR 1.2 (0.8-3.0); POTASSIUM 4.2 mmol/L (3.4-5.0); PROTHROMBIN TIME 12.9 SECONDS (9.7-12.8); SODIUM 138 mmol/L (137-145); TOTAL PROTEIN 7.4 gm/dL (6.4-8.2)
[2020-11-15 17:43] LABS: PARTIAL THROMBOPLASTIN TIME 35.2 SECONDS (26.0-37.0)
[2020-11-15 18:02] LABS: TROPONIN-I < 0.012 ng/mL (0.000-0.035)
[2020-11-15 18:30] VITALS: BP 135/81; PULSE 73
== END 2020-11-15 18:35 | disposition home or self-care (01) ==
LOC: COL.ER 17:04
PROVIDERS: Family Medicine
DX: I48.91 Unspecified atrial fibrillation (principal); R07.89 Other chest pain; Z79.01 Long term (current) use of anticoagulants; Z83.6 Family history of other diseases of the respiratory system; Z79.82 Long term (current) use of aspirin; Z88.6 Allergy status to analgesic agent; Z88.1 Allergy status to other antibiotic agents; Z88.2 Allergy status to sulfonamides; Z95.9 Presence of cardiac and vascular implant and graft, unspecified

== ENCOUNTER 2021-12-08 22:59 | Emergency (ER) | payer MEDICARE, BC ==
[~2021-12-08] VITALS: Ht 177.8 cm; Wt 86.4 kg
[~2021-12-08 22:59] MED LIST changes: +LIDODERM 5% PATC1 EA TP
[2021-12-09 00:12] VITALS: BP 142/75; PULSE 91; TEMP 98
== END 2021-12-09 00:12 | disposition home or self-care (01) ==
LOC: COL.ER 22:59
DX: M62.838 Other muscle spasm (principal); I48.0 Paroxysmal atrial fibrillation; Z79.01 Long term (current) use of anticoagulants; X50.0XXA Overexertion from strenuous movement or load, initial encounter

== ENCOUNTER 2022-03-25 09:35 | Emergency (ER) | payer MEDICARE, BC ==
[~2022-03-25] VITALS: Ht 177.8 cm; Wt 81.8 kg
[2022-03-25 09:47] VITALS: TEMP 97.6
[2022-03-25 11:20] VITALS: BP 128/79; PULSE 87
== END 2022-03-25 11:20 | disposition home or self-care (01) ==
LOC: COL.ER 09:35
DX: S20.211A Contusion of right front wall of thorax, initial encounter (principal); M25.561 Pain in right knee; I48.0 Paroxysmal atrial fibrillation; Z87.891 Personal history of nicotine dependence; Z98.890 Other specified postprocedural states; Z79.01 Long term (current) use of anticoagulants; W01.0XXA Fall on same level from slipping, tripping and stumbling without subsequent striking against object, initial encounter; Y92.009 Unspecified place in unspecified non-institutional (private) residence as the place of occurrence of the external cause
CPT/HCPCS: A9284

== ENCOUNTER 2024-02-07 10:06 | Emergency (ER) | payer MEDICARE, BC ==
[~2024-02-07] VITALS: Ht 177.8 cm; Wt 82.7 kg
[2024-02-07 10:15] VITALS: TEMP 97.8
[2024-02-07 11:14] LABS: BASO # 0.1 K/mm3 (0.0-0.2); BASO % 1.3 % (0.0-2.0); EOS # 0.4 K/mm3 (0.0-0.7); EOS % 4.2 % (0.0-4.0); GRAN # 6.6 K/mm3 (1.4-6.5); GRAN % 70.9 % (42.2-75.2); HEMATOCRIT 40.9 % (42.0-52.0); HEMOGLOBIN 13.2 g/dl (13.5-18.0); LYMPH # 1.5 K/mm3 (1.2-3.4); LYMPH % 15.9 % (20.0-51.0); MEAN CELL VOLUME 93 fl (80.0-100.0); MEAN CORPUSCULAR HEMOGLOBIN 30 pg (27-31); MEAN CORPUSCULAR HGB CONC 32 g/dl (33.0-37.0); MEAN PLATELET VOLUME 12.1 fl (7.4-10.4); MONO # 0.7 K/mm3 (0.1-0.6); MONO % 7.5 % (1.7-9.3); PLATELET COUNT 228 K/mm3 (130-400); REDCELL DISTRIBUTION WIDTH-CV 14.3 % (11.5-14.5)
[2024-02-07 11:19] LABS: ALBUMIN 3.6 g/dL (3.4-4.8); BILIRUBIN,TOTAL 0.4 mg/dL (0.2-1.2); CALCIUM 9.2 mg/dL (8.4-10.2); CREATININE, serum 1.4 mg/dL (0.72-1.25); POTASSIUM 4.5 mEq/L (3.5-4.5); TOTAL PROTEIN 6.8 g/dl (6.2-8.1)
[2024-02-07] MEDS ORDERED: diphenhydrAMINE 50 MG/ML 1 ML VIAL IV ONE (11:30)
[2024-02-07] MEDS ORDERED: Iohexol 300 - 100 ML VIAL IV ONE (11:52)
[2024-02-07] MEDS ORDERED: NS 100 ML IV SCH (11:52)
[2024-02-07] MEDS ORDERED: NORCO 325 MG-51 TAB PO (13:01)
[2024-02-07 13:14] VITALS: BP 150/76; PULSE 66
== END 2024-02-07 13:14 | disposition home or self-care (01) ==
LOC: COL.ER 10:06
PROVIDERS: Nurse Practitioner
DX: S20.20XA Contusion of thorax, unspecified, initial encounter (principal); I48.0 Paroxysmal atrial fibrillation; Z95.5 Presence of coronary angioplasty implant and graft; Z87.891 Personal history of nicotine dependence; Z79.01 Long term (current) use of anticoagulants; W01.0XXA Fall on same level from slipping, tripping and stumbling without subsequent striking against object, initial encounter
CPT/HCPCS: A9284; J1200; Q9967

== ENCOUNTER 2024-02-27 05:07 | Emergency (ER) | payer MEDICARE, BC ==
[~2024-02-27] VITALS: Ht 177.8 cm; Wt 82.6 kg
[2024-02-27 05:12] VITALS: TEMP 97.6
[2024-02-27] MEDS ORDERED: Ondansetron 4 MG/2 ML VIAL IV ONE (05:15)
[2024-02-27] MEDS ORDERED: LR 1,000 ML IV ONE (05:15)
[2024-02-27 05:27] LABS: BASO # 0.2 K/mm3 (0.0-0.2); BASO % 1.4 % (0.0-2.0); EOS # 0.6 K/mm3 (0.0-0.7); EOS % 4.6 % (0.0-4.0); GRAN # 8.6 K/mm3 (1.4-6.5); GRAN % 70.4 % (42.2-75.2); HEMATOCRIT 41.2 % (42.0-52.0); HEMOGLOBIN 13.3 g/dl (13.5-18.0); LYMPH # 1.9 K/mm3 (1.2-3.4); LYMPH % 15.5 % (20.0-51.0); MEAN CELL VOLUME 91 fl (80.0-100.0); MEAN CORPUSCULAR HEMOGLOBIN 30 pg (27-31); MEAN CORPUSCULAR HGB CONC 32 g/dl (33.0-37.0); MEAN PLATELET VOLUME 11.9 fl (7.4-10.4); MONO % 7.9 % (1.7-9.3); PLATELET COUNT 232 K/mm3 (130-400); RED BLOOD COUNT 4.51 M/mm3 (4.20-5.60); REDCELL DISTRIBUTION WIDTH-CV 13.8 % (11.5-14.5)
[2024-02-27] MEDS ORDERED: LORazepam 0.5 MG TAB PO ONE (05:30)
[2024-02-27 05:34] LABS: INR 1.3 (0.8-3.0); PROTHROMBIN TIME 13.7 SECONDS (9.7-12.8)
[2024-02-27 05:37] LABS: PARTIAL THROMBOPLASTIN TIME 36.3 SECONDS (26.0-37.0)
[2024-02-27 05:50] LABS: ALANINE AMINOTRANSFERASE 17 U/L (0-55); ALBUMIN 3.5 g/dL (3.4-4.8); ALKALINE PHOSPHATASE 55 U/L (40-150); ANION GAP 13 mmol/L (7-16); AST,SGOT 22 U/L (5-34); BILIRUBIN,TOTAL 0.4 mg/dL (0.2-1.2); BLOOD UREA NITROGEN 17 mg/dL (8-26); CALCIUM 9.2 mg/dL (8.4-10.2); CHLORIDE 108 mEq/L (98-107); CREATININE, serum 1.26 mg/dL (0.72-1.25); GLUCOSE 219 mg/dL (70-99); POTASSIUM 4.2 mEq/L (3.5-4.5); SODIUM 141 mEq/L (136-145); TOTAL PROTEIN 6.7 g/dl (6.2-8.1)
[2024-02-27 06:02] LABS: TROPONIN-I < 0.010 ng/mL (0.00-0.033)
[2024-02-27 06:39] LABS: COLLECTION METHOD CATHETER
[2024-02-27 06:50] LABS: URINE APPEARANCE CLEAR (CLEAR/HAZY); URINE BLOOD NEGATIVE (NEGATIVE); URINE COLOR YELLOW (YELLOW); URINE GLUCOSE 3+ (NEGATIVE); URINE KETONE TRACE (NEGATIVE); URINE NITRATE NEGATIVE (NEGATIVE); URINE PROTEIN(semi-quant) NEGATIVE (NEGATIVE); URINE UROBILINOGEN 0.2 E.U/dL (0.2-1.0)
[2024-02-27] MEDS ORDERED: ZOFRAN ODT4 MG PO (07:06)
[2024-02-27 07:25] VITALS: BP 122/60; PULSE 59
== END 2024-02-27 07:25 | disposition home or self-care (01) ==
LOC: COL.ER 05:07
PROVIDERS: Emergency Medicine
DX: R11.2 Nausea with vomiting, unspecified (principal); H81.03 Meniere's disease, bilateral
CPT/HCPCS: J2405; J7120